=== PATIENT | female | born 1955 | race Caucasian/White ===

== ENCOUNTER 2016-12-13 14:02 | Emergency (ER) | payer OTHER ==
[2016-12-13] MEDS ORDERED: NORMAL SALINE 1000 ML 1,000 ML IV PRN ×2 (14:14→14:58)
--- NOTE | 2016-12-13 14:14 | ER Document Report ---
ED Medical Screen (RME) - General Stated Complaint: FLANK PAIN Notes: Right flank pain reminiscent of a kidney stone a long time ago I greeted and performed a rapid initial assessment of this patient. Comprehensive ED assessment and evaluation of the patient, analysis of test results and completion of the medical decision making process will be conducted by additional ED providers. TRAVEL OUTSIDE OF THE [place] IN LAST 30 DAYS: No - Related Data Allergies/Adverse Reactions: promethazine HCl [From Phenergan] Allergy (Verified 07/20/14 23:54) Past Medical History Neurological Medical History: Reports: Hx Migraine Endocrine Medical History: Reports: Hx Hypothyroidism Renal/ Medical History: Reports: Hx Kidney Stones Past Surgical History: Reports: Hx Cholecystectomy, Hx Hysterectomy - BTL - Immunizations Hx Diphtheria, Pertussis, Tetanus Vaccination: Yes Physical Exam - Vital signs Vitals: Temp Pulse Resp BP Pulse Ox 98.0 F 67 18 123/88 H 97 12/13/16 14:12 12/13/16 14:12 12/13/16 14:12 12/13/16 14:12 12/13/16 14:12 Course - Vital Signs Vital signs: Temp Pulse Resp BP Pulse Ox 98.0 F 67 18 123/88 H 97 12/13/16 14:12 12/13/16 14:12 12/13/16 14:12 12/13/16 14:12 12/13/16 14:12
[2016-12-13 14:39] LABS: ABSOLUTE BASOPHILS # (AUTO) 0.1 10^3/uL (0.0-0.2); ABSOLUTE EOSINOPHILS # (AUTO) 0.2 10^3/uL (0.0-0.6); ABSOLUTE LYMPHOCYTES (AUTO) 2.1 10^3/uL (0.5-4.7); ABSOLUTE MONOCYTES (AUTO) 0.5 10^3/uL (0.1-1.4); ABSOLUTE NEUT (AUTO) 3.1 10^3/uL (1.7-8.2); BASOPHILS % (AUTO) 1.1 % (0-2); EOSINOPHILS % (AUTO) 3.1 % (0-6); HEMATOCRIT 42.6 % (36.0-47.0); HEMOGLOBIN 13.4 g/dL (12.0-15.5); HGB HCT DIFFERENCE -2.4; LYMPHOCYTES % (AUTO) 35.2 % (13-45); MEAN CORPUSCULAR HGB CONC 31.5 g/dL (32.0-36.0); MEAN CORPUSCULAR VOLUME 89 fl (80-97); MONOCYTES % (AUTO) 8.6 % (3-13); RED BLOOD COUNT 4.79 10^6/uL (3.72-5.28); RED CELL DISTRIBUTION WIDTH 15.1 % (11.5-14.0); WHITE BLOOD COUNT 5.9 10^3/uL (4.0-10.5)
[2016-12-13] MEDS ORDERED: MORPHINE SULFATE 10 MG/ML INJ ONE (14:54)
[2016-12-13] MEDS ORDERED: ONDANSETRON HCL INJ/PF 4 MG/2 ML SDV ONE (14:54)
[2016-12-13] MEDS ORDERED: ONDANSETRON HCL INJ/PF 4 MG/2 ML SDV IV ONE (14:57)
[2016-12-13] MEDS ORDERED: MORPHINE SULFATE 10 MG/ML INJ IV PRN ×3 (14:57→18:21)
[2016-12-13 14:58] LABS: ALANINE AMINOTRANSFERASE 28 U/L (9-52); ALKALINE PHOSPHATASE 71 U/L (38-126); ANION GAP 11 (5-19); ASPARTATE AMINO TRANSFERASE 23 U/L (14-36); BILIRUBIN,TOTAL 0.3 mg/dL (0.2-1.3); BLOOD UREA NITROGEN 24 mg/dL (7-20); CARBON DIOXIDE 24 mmol/L (22-30); CHLORIDE 108 mmol/L (98-107); GLUCOSE 94 mg/dL (75-110); POTASSIUM 4.4 mmol/L (3.6-5.0); SODIUM 143.4 mmol/L (137-145); TOTAL PROTEIN 6.8 g/dL (6.3-8.2)
[2016-12-13 14:59] LABS: CALCIUM 9.7 mg/dL (8.4-10.2)
[2016-12-13] MEDS ORDERED: TAMSULOSIN HCL 0.4 MG CAP.SR.24H PO ONE (15:00)
--- NOTE | 2016-12-13 15:00 | ER Document Report ---
ED General - General Chief Complaint: Flank Pain Stated Complaint: FLANK PAIN Time seen by provider: 14:59 Mode of Arrival: Ambulatory Information source: Patient Notes: This is a 61-year-old female with a history of chronic migraines (on Topamax) and kidney stones in the past. Patient presents to the emergency room with acute onset of right flank pain. Patient denies fever, chills. She does have nausea. TRAVEL OUTSIDE OF THE [place] IN LAST 30 DAYS: No - HPI Onset: Just prior to arrival Onset/Duration: Sudden Quality of pain: Dull Severity: Moderate Pain Level: 4 Associated symptoms: denies: Chills, Nonproductive cough, Productive cough, Fever, Shortness of breath Exacerbated by: Denies Relieved by: Denies Similar symptoms previously: Yes Recently seen / treated by doctor: No - Related Data Allergies/Adverse Reactions: promethazine HCl [From Phenergan] Allergy (Verified 12/13/16 14:15) Past Medical History - General Information source: Patient - Social History Smoking Status: Never Smoker Cigarette use (# per day): No Chew tobacco use (# tins/day): No Frequency of alcohol use: None Drug Abuse: None Lives with: Spouse/Significant other Family History: Reviewed & Not Pertinent Patient has suicidal ideation: No Patient has homicidal ideation: No - Past Medical History Cardiac Medical History: Reports: None Pulmonary Medical History: Reports: None Neurological Medical History: Reports: Hx Migraine Endocrine Medical History: Reports: Hx Hypothyroidism Renal/ Medical History: Reports: Hx Kidney Stones. Denies: Hx Peritoneal Dialysis GI Medical History: Reports: None Musculoskeltal Medical History: Reports None Psychiatric Medical History: Reports: None Traumatic Medical History: Reports: None Infectious Medical History: Reports: None Past Surgical History: Reports: Hx Cholecystectomy, Hx Hysterectomy - BTL - Immunizations Hx Diphtheria, Pertussis, Tetanus Vaccination: Yes Review of Systems - Review of Systems Constitutional: denies: Chills, Fever EENT: No symptoms reported Cardiovascular: No symptoms reported Respiratory: No symptoms reported Gastrointestinal: No symptoms reported Genitourinary: See HPI Female Genitourinary: No symptoms reported Musculoskeletal: No symptoms reported Skin: No symptoms reported Hematologic/Lymphatic: No symptoms reported Neurological/Psychological: No symptoms reported Physical Exam - Vital signs Vitals: Temp Pulse Resp BP Pulse Ox 98.0 F 67 18 123/88 H 97 12/13/16 14:12 12/13/16 14:12 12/13/16 14:12 12/13/16 14:12 12/13/16 14:12 Notes: Physical exam: GENERAL: HEAD: Atraumatic, normocephalic. EYES: Pupils equal round and reactive to light, extraocular movements intact, sclera anicteric, conjunctiva are normal. ENT: oropharynx clear without exudates. Dry mucous membranes. NECK: Normal range of motion, supple without lymphadenopathy or JVD. LUNGS: Breath sounds clear to auscultation bilaterally and equal. No wheezes rales or rhonchi. HEART: Regular rate and rhythm without murmurs, rubs or gallops. ABDOMEN: Soft, nontender, normoactive bowel sounds. No guarding, no rebound. No masses appreciated. Right CVA tenderness. EXTREMITIES: Normal range of motion, no pitting or edema. No clubbing or cyanosis. NEUROLOGICAL: Cranial nerves II through XII grossly intact. Normal speech, normal gait. PSYCH: Normal mood, normal affect. SKIN: Warm, Dry, normal turgor, no rashes or lesions noted. Bedside ultrasound: Right hydronephrosis Course - Vital Signs Vital signs: Temp Pulse Resp BP Pulse Ox 97.3 F 56 L 18 119/69 98 12/13/16 16:01 12/13/16 16:01 12/13/16 16:01 12/13/16 16:01 12/13/16 16:01 - Laboratory Result Diagrams: 12/13/16 14:25 12/13/16 14:25 Laboratory results interpreted by me: 12/13/16 12/13/16 12/13/16 14:25 14:25 14:25 MCHC 31.5 L RDW 15.1 H Chloride 108 H BUN 24 H Urine Blood MODERATE H Urine Nitrite POSITIVE H Urine Urobilinogen 4.0 H Discharge - Discharge Clinical Impression: kidney stone Condition: Stable Disposition: HOME, SELF-CARE Instructions: Kidney Stone ([facility]) Additional Instructions: Recommendations: Rest, drink plenty of fluids. Take Percocet as needed: See the narcotic instruction sheet. Take Zofran for nausea. If you have any further worsening pain, return to the emergency room. If you need follow-up with urologist: It is recommended that you follow-up: [facility] Office [address] [place], [place] [phone] [place] Office [address]. [place], [place] [phone] Prescriptions: Ondansetron HCl [Zofran 4 mg Tablet] 1 - 2 tab PO Q4H PRN #10 tablet PRN Reason: Oxycodone HCl/Acetaminophen [Percocet 5-325 mg Tablet] 1 - 2 tab PO ASDIR PRN # 25 tablet PRN Reason: Tamsulosin HCl [Flomax 0.4 mg Cap.sr] 0.4 mg PO DAILY #7 cap.sr.24h
[2016-12-13 15:38] LABS: APPEARANCE,URINE CLEAR; BILIRUBIN,URINE NEGATIVE (NEGATIVE); GLUCOSE, URINE NEGATIVE (NEGATIVE); KETONES,URINE NEGATIVE (NEGATIVE); LEUKOCYTE ESTERASE,URINE NEGATIVE (NEGATIVE); NITRITE,URINE POSITIVE (NEGATIVE); PROTEIN,URINE NEGATIVE (NEGATIVE); URINE SPECIFIC GRAVITY 1.014
[2016-12-13 20:49] VITALS: BP 124/70
== END 2016-12-13 20:35 | disposition home or self-care (01) ==
LOC: ER 14:02
DX: N20.0 Calculus of kidney (principal); R10.9 Unspecified abdominal pain; Z87.442 Personal history of urinary calculi; E03.9 Hypothyroidism, unspecified
CPT/HCPCS: 96376; 99284; 96374; 96375; 36415; 85025; 80053; 81001; J2270; J2405; J7030; 96361

== ENCOUNTER 2016-12-14 15:45 | Emergency (ER) | payer OTHER ==
--- NOTE | 2016-12-14 15:54 | ER Document Report ---
ED Medical Screen (RME) - General Chief Complaint: Flank Pain Stated Complaint: RIGHT FLANK PAIN, VOMITING Notes: This 61-year-old female was here last night and diagnosed with a kidney stone she was sent home with pain medications and is unable to keep them down experiencing more pain. I greeted and performed a rapid initial assessment of this patient. Comprehensive ED assessment and evaluation of the patient, analysis of test results and completion of the medical decision making process will be conducted by additional ED providers. TRAVEL OUTSIDE OF THE [place] IN LAST 30 DAYS: No - Related Data Allergies/Adverse Reactions: promethazine HCl [From Phenergan] Allergy (Verified 12/13/16 14:15) Past Medical History Neurological Medical History: Reports: Hx Migraine Endocrine Medical History: Reports: Hx Hypothyroidism Renal/ Medical History: Reports: Hx Kidney Stones. Denies: Hx Peritoneal Dialysis Past Surgical History: Reports: Hx Cholecystectomy, Hx Hysterectomy - BTL - Immunizations Hx Diphtheria, Pertussis, Tetanus Vaccination: Yes Physical Exam - Vital signs Vitals: Temp Pulse Resp BP Pulse Ox 97.7 F 62 18 138/69 H 100 12/14/16 15:53 12/14/16 15:53 12/14/16 15:53 12/14/16 15:53 12/14/16 15:53 Course - Vital Signs Vital signs: Temp Pulse Resp BP Pulse Ox 97.7 F 62 18 138/69 H 100 12/14/16 15:53 12/14/16 15:53 12/14/16 15:53 12/14/16 15:53 12/14/16 15:53
[2016-12-14] MEDS ORDERED: NORMAL SALINE 1000 ML 1,000 ML IV PRN ×3 (15:55→20:59)
[2016-12-14 16:35] LABS: ABSOLUTE LYMPHOCYTES (AUTO) 1.4 10^3/uL (0.5-4.7); ABSOLUTE MONOCYTES (AUTO) 0.9 10^3/uL (0.1-1.4); BASOPHILS % (AUTO) 0.4 % (0-2); EOSINOPHILS % (AUTO) 0.2 % (0-6); HEMATOCRIT 44.1 % (36.0-47.0); HEMOGLOBIN 13.4 g/dL (12.0-15.5); HGB HCT DIFFERENCE -3.9; LYMPHOCYTES % (AUTO) 12.7 % (13-45); MEAN CORPUSCULAR HEMOGLOBIN 27.1 pg (27.0-33.4); MEAN CORPUSCULAR HGB CONC 30.4 g/dL (32.0-36.0); MEAN CORPUSCULAR VOLUME 89 fl (80-97); MONOCYTES % (AUTO) 7.5 % (3-13); RED BLOOD COUNT 4.94 10^6/uL (3.72-5.28); RED CELL DISTRIBUTION WIDTH 15.2 % (11.5-14.0); SEGMENTED NEUTROPHILS % (AUTO) 79.2 % (42-78); WHITE BLOOD COUNT 11.4 10^3/uL (4.0-10.5)
[2016-12-14 16:49] LABS: ALANINE AMINOTRANSFERASE 34 U/L (9-52); ALBUMIN 4.6 g/dL (3.5-5.0); ALKALINE PHOSPHATASE 78 U/L (38-126); ANION GAP 15 (5-19); ASPARTATE AMINO TRANSFERASE 28 U/L (14-36); BILIRUBIN,TOTAL 0.5 mg/dL (0.2-1.3); BLOOD UREA NITROGEN 16 mg/dL (7-20); CALCIUM 10.2 mg/dL (8.4-10.2); CARBON DIOXIDE 23 mmol/L (22-30); CHLORIDE 106 mmol/L (98-107); CREATININE RESULT 0.99 mg/dL (0.52-1.25); GLUCOSE 101 mg/dL (75-110); SODIUM 143.5 mmol/L (137-145); TOTAL PROTEIN 7.2 g/dL (6.3-8.2)
[2016-12-14] MEDS ORDERED: ONDANSETRON HCL INJ/PF 4 MG/2 ML SDV IV ONE (17:02)
[2016-12-14] MEDS ORDERED: HYDROMORPHONE HCL INJ/PF 2 MG/ML AMPULE IV ONE ×2 (17:02→19:22)
[2016-12-14] MEDS ORDERED: KETOROLAC TROMETHAMINE INJ/PF 30 MG/1 ML SDV IV ONE (17:06)
--- NOTE | 2016-12-14 17:06 | ER Document Report ---
ED General - General Chief Complaint: Flank Pain Stated Complaint: RIGHT FLANK PAIN, VOMITING Time seen by provider: 17:04 Mode of Arrival: Ambulatory Information source: Patient Notes: This is a 61-year-old female with a history of chronic migraines and kidney stones who presented to the emergency room with acute onset right flank pain yesterday. Bedside ultrasound showed hydronephrosis. The urine did show hematuria. We treated her with IV fluids, IV pain medicines and IV antiemetics. At that time, we discussed CAT scan and patient wanted to try to pass the stone without the extra radiation. She was discharged with Zofran, Percocet, Flomax. She states that shortly after getting home, she started vomiting again is not been able to tolerate any pain medicines because of the vomiting. She comes in with persistent right flank and right lower quadrant pain. TRAVEL OUTSIDE OF THE [place] IN LAST 30 DAYS: No - HPI Onset: Yesterday Onset/Duration: Sudden Quality of pain: Dull Severity: Moderate Pain Level: 4 Associated symptoms: denies: Chills, Nonproductive cough, Productive cough, Fever, Shortness of breath Exacerbated by: Denies Relieved by: Denies Similar symptoms previously: Yes Recently seen / treated by doctor: Yes - Related Data Allergies/Adverse Reactions: promethazine HCl [From Phenergan] Allergy (Verified 12/13/16 14:15) Past Medical History - General Information source: Patient - Social History Smoking Status: Never Smoker Cigarette use (# per day): No Chew tobacco use (# tins/day): No Frequency of alcohol use: None Drug Abuse: None Lives with: Spouse/Significant other Family History: Reviewed & Not Pertinent Patient has suicidal ideation: No Patient has homicidal ideation: No - Past Medical History Cardiac Medical History: Reports: None Pulmonary Medical History: Reports: None Neurological Medical History: Reports: Hx Migraine Endocrine Medical History: Reports: Hx Hypothyroidism Renal/ Medical History: Reports: Hx Kidney Stones. Denies: Hx Peritoneal Dialysis Malignancy Medical History: Reports: None GI Medical History: Reports: None Musculoskeltal Medical History: Reports None Skin Medical History: Reports None Psychiatric Medical History: Reports: None Traumatic Medical History: Reports: None Infectious Medical History: Reports: None Past Surgical History: Reports: Hx Cholecystectomy, Hx Hysterectomy - BTL - Immunizations Hx Diphtheria, Pertussis, Tetanus Vaccination: Yes Review of Systems - Review of Systems Constitutional: denies: Chills, Fever EENT: No symptoms reported Cardiovascular: No symptoms reported Respiratory: No symptoms reported Gastrointestinal: See HPI Genitourinary: See HPI Female Genitourinary: No symptoms reported Musculoskeletal: No symptoms reported Skin: No symptoms reported Hematologic/Lymphatic: No symptoms reported Neurological/Psychological: No symptoms reported Physical Exam - Vital signs Vitals: Temp Pulse Resp BP Pulse Ox 97.7 F 62 18 138/69 H 100 12/14/16 15:53 12/14/16 15:53 12/14/16 15:53 12/14/16 15:53 12/14/16 15:53 Notes: Physical exam: GENERAL: 61-year-old female, alert and oriented 3, she is in moderate distress. HEAD: Atraumatic, normocephalic. EYES: Pupils equal round and reactive to light, extraocular movements intact, sclera anicteric, conjunctiva are normal. ENT: Nares patent, oropharynx clear without exudates. Dry mucous membranes. NECK: Normal range of motion, supple without lymphadenopathy LUNGS: Breath sounds clear to auscultation bilaterally and equal. No wheezes rales or rhonchi. HEART: Regular rate and rhythm without murmurs, rubs or gallops. ABDOMEN: Soft, right CVA and right flank pain, normoactive bowel sounds. No guarding, no rebound. No masses appreciated. EXTREMITIES: Normal range of motion, no pitting or edema. No clubbing or cyanosis. NEUROLOGICAL: Cranial nerves II through XII grossly intact. Normal speech, normal gait. PSYCH: Normal mood, normal affect. SKIN: Warm, Dry, normal turgor, no rashes or lesions noted. Course - Re-evaluation Re-evalutation: 12/14/16 19:31 Patient is doing better. I will give her a little bit more pain medicine and not further IV fluids. Her vomiting seems to be controlled. The plan will still be the same. - Vital Signs Vital signs: Temp Pulse Resp BP Pulse Ox 97.7 F 62 18 138/69 H 100 12/14/16 15:53 12/14/16 15:53 12/14/16 15:53 12/14/16 15:53 12/14/16 15:53 - Laboratory Result Diagrams: 12/14/16 16:02 12/14/16 16:02 Laboratory results interpreted by me: 12/14/16 12/14/16 12/14/16 16:02 16:02 17:00 WBC 11.4 H MCHC 30.4 L RDW 15.2 H Seg Neutrophils % 79.2 H Lymphocytes % 12.7 L Absolute Neutrophils 9.0 H Est GFR (Non-Af Amer) 57 L Urine Ketones 20 H Urine Blood LARGE H - Diagnostic Test Radiology reviewed: Image reviewed, Reports reviewed - Renal CT shows a 2-3 mm stone at the right UVJ with hydronephrosis. Discharge - Discharge Clinical Impression: renal colic, vomiting Condition: Stable Disposition: HOME, SELF-CARE Instructions: Kidney Stone ([facility]) Additional Instructions: Recommendations: Rest, drink plenty of fluids, advance diet slowly. Take pain medicine as needed. Zofran for nausea. Follow-up with urologist: [facility] [place] Office [address] [place], [place] [phone] [place] Office [address]. [place], [place] [phone] Return to the emergency room for worsening pain, fever, not tolerating fluids. Prescriptions: Ondansetron [Zofran Odt] 8 mg PO Q6HP PRN #14 tab.rapdis PRN Reason: Oxycodone HCl/Acetaminophen [Percocet 5-325 mg Tablet] 1 - 2 tab PO ASDIR PRN # 25 tablet PRN Reason: Forms: Return to Work Referrals: CÉSAR KLEIN MD [ACTIVE STAFF] - Follow up as needed (Follow-up appointment to reassess Topamax.)
[2016-12-14 17:26] LABS: APPEARANCE,URINE SLIGHTLY-CLOUDY; BILIRUBIN,URINE NEGATIVE (NEGATIVE); GLUCOSE, URINE NEGATIVE (NEGATIVE); KETONES,URINE 20 mg/dL (NEGATIVE); LEUKOCYTE ESTERASE,URINE NEGATIVE (NEGATIVE); NITRITE,URINE NEGATIVE (NEGATIVE); PROTEIN,URINE NEGATIVE (NEGATIVE); URINE SPECIFIC GRAVITY 1.015; UROBILINOGEN,URINE NEGATIVE mg/dL (<2.0)
[2016-12-14] MEDS ORDERED: ONDANSETRON ODT 4 MG TAB (6 TAB/DSPK) PO PRN (21:08)
[2016-12-14] MEDS: HYDROMORPHONE HCL INJ/PF 2 MG/ML AMPULE IV PRN ×2 (21:15→23:30)
[2016-12-14 23:42] VITALS: BP 100/56
== END 2016-12-14 23:35 | disposition home or self-care (01) ==
LOC: ER 15:45
DX: N13.2 Hydronephrosis with renal and ureteral calculous obstruction (principal); R11.10 Vomiting, unspecified; R10.9 Unspecified abdominal pain; R10.31 Right lower quadrant pain; Z88.8 Allergy status to other drugs, medicaments and biological substances; Z90.49 Acquired absence of other specified parts of digestive tract; Z90.710 Acquired absence of both cervix and uterus; Z98.51 Tubal ligation status
CPT/HCPCS: 96376; 99284; 96361; 96374; 96375; 36415; 85025; 80053; 81001; 76380; J1885; J1170; J2405; J7030

== ENCOUNTER 2018-02-22 18:03 | Emergency (ER) | payer OTHER ==
[2018-02-22] MEDS ORDERED: NORMAL SALINE 1000 ML 1,000 ML IV ONE (19:26)
[2018-02-22] MEDS ORDERED: KETOROLAC TROMETHAMINE INJ/PF 30 MG/1 ML SDV IV ONE (19:26)
[2018-02-22] MEDS ORDERED: DIPHENHYDRAMINE HCL 50 MG/ML VIAL IV ONE (19:26)
[2018-02-22] MEDS ORDERED: METOCLOPRAMIDE HCL INJ/PF 10 MG/2 ML SDV IV ONE ×2 (19:27→21:15)
--- NOTE | 2018-02-22 19:29 | ER Document Report ---
ED Medical Screen (RME) - General Chief Complaint: Headache Stated Complaint: HEADACHE Time Seen by Provider: 02/22/18 19:26 Notes: Patient states she has a long history of migraines and takes chronic migraine medications. She states she started with this migraine on Thursday and it feels different than previous migraines. It is different and that it is intense pain behind the left eye and radiates throughout the left side of her head. Patient states that she has not had any CT or MRI done and "years". No recent trauma. No cough cold congestion or fevers. No rashes. Patient states she is also concerned because her vision has been blurry in the left eye today starting around 8 AM. 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 Patient is not within the window for a code stroke. TRAVEL OUTSIDE OF THE [place] IN LAST 30 DAYS: No - Related Data Allergies/Adverse Reactions: promethazine HCl [From Phenergan] Allergy (Verified 02/22/18 18:08) Past Medical History - Social History Chew tobacco use (# tins/day): No Frequency of alcohol use: None Drug Abuse: None Neurological Medical History: Reports: Hx Migraine Endocrine Medical History: Reports: Hx Hypothyroidism Renal/ Medical History: Reports: Hx Kidney Stones. Denies: Hx Peritoneal Dialysis Past Surgical History: Reports: Hx Cholecystectomy, Hx Hysterectomy - Immunizations Hx Diphtheria, Pertussis, Tetanus Vaccination: Yes Physical Exam - Vital signs Vitals: Temp Pulse Resp BP Pulse Ox 98.3 F 75 16 124/76 97 02/22/18 18:37 02/22/18 18:37 02/22/18 18:37 02/22/18 18:37 02/22/18 18:37 Course - Vital Signs Vital signs: Temp Pulse Resp BP Pulse Ox 98.3 F 75 16 124/76 97 02/22/18 18:37 02/22/18 18:37 02/22/18 18:37 02/22/18 18:37 02/22/18 18:37
--- NOTE | 2018-02-22 20:39 | RADIOLOGY REPORT (SQ) ---
EXAM DESCRIPTION: CT HEAD WITHOUT COMPLETED DATE/TIME: 02/22/2018 8:17 pm REASON FOR STUDY: left sided headache COMPARISON: None. TECHNIQUE: Axial images acquired through the brain without intravenous contrast. Images reviewed wi th bone, brain and subdural windows. Images stored on PACS. All CT scanners at this facility use dose modulation, iterative reconstruction, and/or weight based d osing when appropriate to reduce radiation dose to as low as reasonably achievable (ALARA). [facility]: Dose Right [facility]: CareDose [facility]: Dose Right [facility]: Teradose 4D [facility]: VGTel RADIATION DOSE: CT Rad equipment meets quality standard of care and radiation dose reduction techniq ues were employed. CTDIvol: 64.6 mGy. DLP: 1034 mGy-cm. mGy. LIMITATIONS: None. FINDINGS: VENTRICLES: Normal size and contour. CEREBRUM: No masses. No hemorrhage. No midline shift. No evidence for acute infarction. Normal gra y/white matter differentiation. No areas of low density in the white matter. CEREBELLUM: No masses. No hemorrhage. No alteration of density. No evidence for acute infarction. EXTRAAXIAL SPACES: No fluid collections. No masses. ORBITS AND GLOBE: No intra- or extraconal masses. Normal contour of globe without masses. CALVARIUM: No fracture. PARANASAL SINUSES: No fluid or mucosal thickening. SOFT TISSUES: No mass or hematoma. OTHER: No other significant finding. IMPRESSION: NORMAL BRAIN CT WITHOUT CONTRAST. EVIDENCE OF ACUTE STROKE: No COMMENT: Quality ID # [id number]: Final reports with documentation of one or more dose reduction techniques (e.g., Automated exposure control, adjustment of the mA and/or kV according to patient size, use of iterative reconstruction technique) TECHNICAL DOCUMENTATION: JOB ID: [id number] [email or web address] All Rights Reserved Reading location - IP/workstation name: [email or web address]
[2018-02-22] MEDS ORDERED: HYDROMORPHONE HCL INJ/PF 2 MG/ML AMPULE IV ONE (21:14)
[2018-02-22] MEDS ORDERED: DEXAMETHASONE SOD PHOS INJ 10 MG/1 ML VIAL IV ONE (21:15)
--- NOTE | 2018-02-22 21:15 | ER Document Report ---
ED Headache - General Chief Complaint: Headache Stated Complaint: HEADACHE Time Seen by Provider: 02/22/18 19:26 Notes: Patient is a 63-year-old female that comes emergency department for chief complaint of a headache for the past 3 days. She states she has tightness in the left side of her neck, tightness along the left side of her head, throbbing behind the left eye with intermittent blurry vision in the left eye. She denies trauma, fever. She does have a history of migraines, she has had previous CAT scans and MRIs performed, she takes Topamax, if the headache is early she takes sumatriptan, she also can take Vicoprofen as needed. She denies any focal numbness or weakness, speech difficulty, history of stroke, and she is not on a blood thinner. TRAVEL OUTSIDE OF THE [place] IN LAST 30 DAYS: No - Related Data Allergies/Adverse Reactions: promethazine HCl [From Phenergan] Allergy (Verified 02/22/18 18:08) Past Medical History - General Information source: Patient - Social History Smoking Status: Never Smoker Chew tobacco use (# tins/day): No Frequency of alcohol use: None Drug Abuse: None Lives with: Family Family History: Reviewed & Not Pertinent Patient has suicidal ideation: No Patient has homicidal ideation: No Neurological Medical History: Reports: Hx Migraine Endocrine Medical History: Reports: Hx Hypothyroidism Renal/ Medical History: Reports: Hx Kidney Stones. Denies: Hx Peritoneal Dialysis Past Surgical History: Reports: Hx Cholecystectomy, Hx Hysterectomy - Immunizations Hx Diphtheria, Pertussis, Tetanus Vaccination: Yes Review of Systems - Review of Systems Constitutional: No symptoms reported EENT: No symptoms reported Cardiovascular: No symptoms reported Respiratory: No symptoms reported Gastrointestinal: No symptoms reported Genitourinary: No symptoms reported Female Genitourinary: No symptoms reported Musculoskeletal: See HPI Skin: No symptoms reported Hematologic/Lymphatic: No symptoms reported Neurological/Psychological: See HPI Physical Exam - Vital signs Vitals: Temp Pulse Resp BP Pulse Ox 98.3 F 75 16 124/76 97 02/22/18 18:37 02/22/18 18:37 02/22/18 18:37 02/22/18 18:37 02/22/18 18:37 - General General appearance: Appears well In distress: None - HEENT Head: Normocephalic, Atraumatic Eyes: Normal Conjunctiva: Normal Extraocular movements intact: Yes Eyelashes: Normal Pupils: PERRL Nasal: Normal Mouth/Lips: Normal Mucous membranes: Normal Pharynx: Normal Neck: Normal - Respiratory Respiratory status: No respiratory distress Breath sounds: Normal. No: Decreased air movement, Wheezing - Cardiovascular Rhythm: Regular. No: Tachycardia Heart sounds: Normal auscultation, S1 appreciated, S2 appreciated - Abdominal Inspection: Normal Tenderness: Nontender. No: Tender, Guarding - Back Back: Tender - There is tenderness over the left paracervical musculature, no midline tenderness, normal upper and lower extremity range of motion, normal distal neurovascular exam, no saddle anesthesia - Extremities General upper extremity: Normal inspection, Nontender, Normal strength, Normal temperature General lower extremity: Normal inspection, Nontender, Normal strength, Normal temperature - Neurological Neuro grossly intact: Yes Cognition: Normal Orientation: AAOx4 [place] Coma Scale Eye Opening: Spontaneous [place] Coma Scale Verbal: Oriented [place] Coma Scale Motor: Obeys Commands [place] Coma Scale Total: 15 Speech: Normal Cranial nerves: Normal Cerebellar coordination: Normal Motor strength normal: LUE, RUE, LLE, RLE 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 CAT scan of the head was reviewed and normal, patient has no neurological deficits, only pertinent physical exam finding is tenderness in the left paracervical area, she has no nuchal rigidity, fever, altered mental status, or other concerning abnormalities. After additional medications including dexamethasone headache is completely resolved. Patient is very grateful, smiling, requesting to leave. Low suspicion of meningitis, subarachnoid hemorrhage, CVA, venous sinus thrombosis based on her assessment and headache resolution. Patient has excellent follow- up, discussed return precautions in detail, patient states understanding and agreement. - Vital Signs Vital signs: Temp Pulse Resp BP Pulse Ox 98.0 F 68 14 102/59 L 98 02/22/18 23:10 02/22/18 23:10 02/22/18 23:10 02/22/18 23:10 02/22/18 23:10 Discharge - Discharge Clinical Impression: Headache Qualifiers: Headache type: unspecified Headache chronicity pattern: acute headache Intractability: not intractable Qualified Code(s): R51 - Headache Condition: Stable Disposition: HOME, SELF-CARE Additional Instructions: Your evaluation and symptoms are most consistent with a tension type headache with associated migraine. CAT scan of the head does not show any concerning abnormalities. You may need additional management for your neck including muscle relaxers, heat , gentle stretches, etc. Follow-up with primary care. Return to the emergency department for any concerning or worsening symptoms including return severe headache, vomiting, fever, or any other concerning symptoms. Forms: Return to Work Referrals: CARYN HOUSE MD [Primary Care Provider] - Follow up as needed
[2018-02-22 23:24] VITALS: BP 102/59
== END 2018-02-22 23:24 | disposition home or self-care (01) ==
LOC: ER 18:03
DX: R51 Headache (principal); M54.2 Cervicalgia; H53.8 Other visual disturbances; H57.12 Ocular pain, left eye; Z79.899 Other long term (current) drug therapy
CPT/HCPCS: 96376; 99283; 96361; 96374; 96375; 70450; J1200; J1885; J2765; J1170; J7030; J1100

== ENCOUNTER 2018-06-10 17:55 | Emergency (ER) | payer OTHER ==
[2018-06-10] MEDS ORDERED: NORMAL SALINE 1000 ML 1,000 ML IV ONE (19:08)
[2018-06-10] MEDS ORDERED: DIPHENHYDRAMINE HCL 50 MG/ML VIAL IV ONE (19:08)
[2018-06-10] MEDS ORDERED: METOCLOPRAMIDE HCL INJ/PF 10 MG/2 ML SDV IV ONE (19:09)
--- NOTE | 2018-06-10 19:10 | ER Document Report ---
ED Medical Screen (RME) - General Chief Complaint: Headache Stated Complaint: HEADACHE Time Seen by Provider: 06/10/18 19:02 Mode of Arrival: Ambulatory Information source: Patient Notes: 63-year-old female presents emergency department with complaints of a migraine headache. Patient has a history of migraine headaches and states that this is similar to previous. Patient states that the headache is located on the left side of her face and behind her left eye. She describes it as a stabbing sensation. She denies any radiation of the pain. She denies any alleviating factors. Patient states that light and sound make her migraine worse. She has tried Maxalt, Topamax, Fioricet without any relief of symptoms. Patient is having some nausea but denies any vomiting. I have greeted and performed a rapid initial assessment of this patient. A comprehensive ED assessment and evaluation of the patient, analysis of test results and completion of the medical decision making process will be conducted by additional ED providers. PHYSICAL EXAMINATION: GENERAL: Well-appearing, well-nourished and in no acute distress. HEAD: Atraumatic, normocephalic. EYES: Pupils equal round extraocular movements intact, conjunctiva are normal. ENT: Nares patent NECK: Normal range of motion LUNGS: No respiratory distress Musculoskeletal: Normal range of motion NEUROLOGICAL: Normal speech, normal gait. PSYCH: Normal mood, normal affect. SKIN: Warm, Dry, normal turgor, no rashes or lesions noted. TRAVEL OUTSIDE OF THE [place] IN LAST 30 DAYS: No - Related Data Allergies/Adverse Reactions: promethazine HCl [From Phenergan] Allergy (Verified 02/22/18 18:08) Past Medical History - Social History Frequency of alcohol use: Occasional Neurological Medical History: Reports: Hx Migraine Endocrine Medical History: Reports: Hx Hypothyroidism Renal/ Medical History: Reports: Hx Kidney Stones. Denies: Hx Peritoneal Dialysis Past Surgical History: Reports: Hx Cholecystectomy, Hx Hysterectomy - Immunizations Hx Diphtheria, Pertussis, Tetanus Vaccination: Yes Physical Exam - Vital signs Vitals: Temp Pulse Resp BP Pulse Ox 97.6 F 64 15 125/77 98 06/10/18 18:09 06/10/18 18:09 06/10/18 18:09 06/10/18 18:09 06/10/18 18:09 Course - Vital Signs Vital signs: Temp Pulse Resp BP Pulse Ox 97.6 F 64 15 125/77 98 06/10/18 18:09 06/10/18 18:09 06/10/18 18:09 06/10/18 18:09 06/10/18 18:09 Doctor's Discharge - Discharge Referrals: CARYN HOUSE MD [Primary Care Provider] - Follow up as needed
[2018-06-10] MEDS ORDERED: KETOROLAC TROMETHAMINE INJ/PF 30 MG/1 ML SDV IV ONE (20:16)
--- NOTE | 2018-06-10 20:19 | ER Document Report ---
ED Headache - General Chief Complaint: Headache Stated Complaint: HEADACHE Time Seen by Provider: 06/10/18 19:02 Mode of Arrival: Ambulatory Information source: Patient Notes: Patient is a 63-year-old female with chief complaint of migraine. Patient reports history of migraines and states that this migraine started at approximately 10 AM. Patient reports that the headache was a gradual onset is located in the left side of her head and behind the left. Patient reports that she has taken her Topamax, Maxalt and Fioricet with no relief of her pain. Patient also reports associated nausea with no vomiting. TRAVEL OUTSIDE OF THE [place] IN LAST 30 DAYS: No - Related Data Allergies/Adverse Reactions: promethazine HCl [From Phenergan] Allergy (Verified 02/22/18 18:08) Past Medical History - General Information source: Patient - Social History Smoking Status: Never Smoker Frequency of alcohol use: Occasional Lives with: Spouse/Significant other Family History: Reviewed & Not Pertinent Patient has suicidal ideation: No Patient has homicidal ideation: No Neurological Medical History: Reports: Hx Migraine Endocrine Medical History: Reports: Hx Hypothyroidism Renal/ Medical History: Reports: Hx Kidney Stones. Denies: Hx Peritoneal Dialysis Past Surgical History: Reports: Hx Cholecystectomy, Hx Hysterectomy - Immunizations Hx Diphtheria, Pertussis, Tetanus Vaccination: Yes Review of Systems - Review of Systems Constitutional: No symptoms reported EENT: No symptoms reported Cardiovascular: No symptoms reported Respiratory: No symptoms reported Gastrointestinal: No symptoms reported Genitourinary: No symptoms reported Female Genitourinary: No symptoms reported Musculoskeletal: No symptoms reported Skin: No symptoms reported Hematologic/Lymphatic: No symptoms reported Neurological/Psychological: Headaches Physical Exam - Vital signs Vitals: Temp Pulse Resp BP Pulse Ox 97.6 F 64 15 125/77 98 06/10/18 18:09 06/10/18 18:09 06/10/18 18:09 06/10/18 18:09 06/10/18 18:09 - Notes Notes: PHYSICAL EXAMINATION: GENERAL: Well-appearing, well-nourished and in no acute distress. HEAD: Atraumatic, normocephalic. EYES: Pupils equal round and reactive to light, extraocular movements intact, conjunctiva are normal. ENT: Nares patent, oropharynx clear without exudates. Moist mucous membranes. NECK: Normal range of motion, supple without lymphadenopathy LUNGS: Breath sounds clear to auscultation bilaterally and equal. No wheezes rales or rhonchi. HEART: Regular rate and rhythm without murmurs ABDOMEN: Soft, nontender, nondistended abdomen. No guarding, no rebound. No masses appreciated. Female : deferred Musculoskeletal: Normal range of motion, no pitting or edema. No cyanosis. NEUROLOGICAL: Cranial nerves grossly intact. Normal speech, normal gait. Normal sensory, motor exams PSYCH: Normal mood, normal affect. SKIN: Warm, Dry, normal turgor, no rashes or lesions noted. Course - Re-evaluation Re-evalutation: 63-year-old female presents with chief complaint of headache. Patient reports history of migraines and reports that this headache is consistent with her typical migraines. Patient was initially seen by triage provider who ordered Reglan, Benadryl and 1L of normal saline. Patient reports that Toradol usually helps with her migraines. I will add on an order of Toradol IV and reevaluate the patient. Patient reports complete resolution of her headache symptoms at this time. Patient reports that she is ready to go home. Patient will be discharged home in stable condition. - Vital Signs Vital signs: Temp Pulse Resp BP Pulse Ox 97.6 F 64 15 125/77 98 06/10/18 18:09 06/10/18 18:09 06/10/18 18:09 06/10/18 18:09 06/10/18 18:09 Discharge - Discharge Clinical Impression: Migraine Qualifiers: Migraine type: with aura Status migrainosus presence: without status migrainosus Intractability: not intractable Qualified Code(s): G43.109 - Migraine with aura, not intractable, without status migrainosus Condition: Stable Disposition: HOME, SELF-CARE Additional Instructions: Migraine Headache The physician feels that your symptoms are due to a migraine attack. Migraines are caused by changes in the blood vessels of the head. Arteries go into spasm, often causing warning symptoms that a headache may begin soon. As the spasm goes away, the vessels dilate and throb, causing the pounding pain of a migraine headache. Migraines often cause nausea and vomiting. The treatment of headaches varies with severity and cause of pain. Not all headaches need pain shots -- in fact, there is evidence that using narcotics for headaches may make them worse in the long run. The physician will determine the therapy that's in your best interest for this particular headache. Medications are available that may prevent migraines, or stop them as they first occur. If one medication is not helpful, try another. If migraines are frequent, be patient -- follow the doctor's recommendations. Call the physician if you are worsening, or if new symptoms arise. Referrals: CARYN HOUSE MD [Primary Care Provider] - Follow up as needed
[2018-06-10 21:35] VITALS: BP 139/70
== END 2018-06-10 21:44 | disposition home or self-care (01) ==
LOC: ER 17:55
DX: G43.109 Migraine with aura, not intractable, without status migrainosus (principal); Z88.8 Allergy status to other drugs, medicaments and biological substances; Z90.49 Acquired absence of other specified parts of digestive tract; Z90.710 Acquired absence of both cervix and uterus
CPT/HCPCS: 99283; 96361; 96374; 96375; J1200; J1885; J2765; J7030

== ENCOUNTER 2018-10-05 17:11 | Emergency (ER) | payer OTHER ==
[2018-10-05] MEDS ORDERED: DIPHENHYDRAMINE HCL 50 MG/ML VIAL IV ONE (18:02)
[2018-10-05] MEDS ORDERED: METOCLOPRAMIDE HCL INJ/PF 10 MG/2 ML SDV IV ONE (18:03)
[2018-10-05] MEDS ORDERED: NORMAL SALINE 1000 ML 1,000 ML IV ONE (18:03)
--- NOTE | 2018-10-05 18:06 | ER Document Report ---
ED Medical Screen (RME) - General Chief Complaint: Headache Stated Complaint: HEADACHE Time Seen by Provider: 10/05/18 17:56 Mode of Arrival: Ambulatory Information source: Patient Notes: 63-year-old female presents emergency department with a 3-day history headache. She states that the headache is located on the left side of her face behind her left eye and towards her rastafarian. She describes it as a throbbing sensation. She denies any alleviating or exacerbating factors. Patient states that she is tried Maxalt and Fioricet without relief of symptoms. Patient states that she is having some associated nausea and some blurred vision. Patient states that this headache feels different than her previous. She states that she has never had blurred vision associated with the migraine. Patient states that this is concerning her. She states that she also did not have an aura with this headache today. She states that she has been having frequent syncopal episodes over the last couple of weeks. Patient states that she has fallen down and hit her head. She denies any numbness, tingling, weakness, speech changes. I have greeted and performed a rapid initial assessment of this patient. A comprehensive ED assessment and evaluation of the patient, analysis of test results and completion of the medical decision making process will be conducted by additional ED providers. PHYSICAL EXAMINATION: GENERAL: Well-appearing, well-nourished and in no acute distress. HEAD: Atraumatic, normocephalic. EYES: Pupils equal round extraocular movements intact, conjunctiva are normal. ENT: Nares patent NECK: Normal range of motion LUNGS: No respiratory distress Musculoskeletal: Normal range of motion NEUROLOGICAL: Normal speech, normal gait. PSYCH: Normal mood, normal affect. SKIN: Warm, Dry, normal turgor, no rashes or lesions noted. TRAVEL OUTSIDE OF THE [place] IN LAST 30 DAYS: No - Related Data Allergies/Adverse Reactions: promethazine HCl [From Phenergan] Allergy (Verified 10/05/18 17:38) Past Medical History - Social History Chew tobacco use (# tins/day): No Frequency of alcohol use: None Drug Abuse: None Neurological Medical History: Reports: Hx Migraine Endocrine Medical History: Reports: Hx Hypothyroidism Renal/ Medical History: Reports: Hx Kidney Stones. Denies: Hx Peritoneal Dialysis Past Surgical History: Reports: Hx Cholecystectomy, Hx Hysterectomy - Immunizations Hx Diphtheria, Pertussis, Tetanus Vaccination: Yes Physical Exam - Vital signs Vitals: Temp Pulse Resp BP Pulse Ox 98.2 F 74 18 125/77 97 10/05/18 17:20 10/05/18 17:20 10/05/18 17:20 10/05/18 17:20 10/05/18 17:20 Course - Vital Signs Vital signs: Temp Pulse Resp BP Pulse Ox 98.2 F 74 18 125/77 97 10/05/18 17:20 10/05/18 17:20 10/05/18 17:20 10/05/18 17:20 10/05/18 17:20 Doctor's Discharge - Discharge Referrals: CARYN HOUSE MD [Primary Care Provider] - Follow up as needed
--- NOTE | 2018-10-05 18:49 | RADIOLOGY REPORT (SQ) ---
EXAM DESCRIPTION: CT HEAD WITHOUT COMPLETED DATE/TIME: 10/05/2018 6:20 pm REASON FOR STUDY: blurred vision, headache COMPARISON: 02/22/2018 TECHNIQUE: Axial images acquired through the brain without intravenous contrast. Images reviewed wi th bone, brain and subdural windows. Additional sagittal and coronal reconstructions were generated. Images stored on PACS. All CT scanners at this facility use dose modulation, iterative reconstruction, and/or weight based d osing when appropriate to reduce radiation dose to as low as reasonably achievable (ALARA). [facility]: Dose Right [facility]: CareDose [facility]: Dose Right [facility]: Teradose 4D [facility]: Smart M&D ANTIQUES & CONSIGNMENT RADIATION DOSE: CT Rad equipment meets quality standard of care and radiation dose reduction techniq ues were employed. CTDIvol: 53.2 mGy. DLP: 991 mGy-cm. mGy. LIMITATIONS: None. FINDINGS: VENTRICLES: Normal size and contour. CEREBRUM: No masses. No hemorrhage. No midline shift. No evidence for acute infarction. Normal gra y/white matter differentiation. No areas of low density in the white matter. CEREBELLUM: No masses. No hemorrhage. No alteration of density. No evidence for acute infarction. EXTRAAXIAL SPACES: No fluid collections. No masses. ORBITS AND GLOBE: No intra- or extraconal masses. Normal contour of globe without masses. CALVARIUM: No fracture. PARANASAL SINUSES: No fluid or mucosal thickening. SOFT TISSUES: No mass or hematoma. OTHER: No other significant finding. IMPRESSION: NORMAL BRAIN CT WITHOUT CONTRAST. EVIDENCE OF ACUTE STROKE: NO. COMMENT: Quality ID # [id number]: Final reports with documentation of one or more dose reduction techniques (e.g., Automated exposure control, adjustment of the mA and/or kV according to patient size, use of iterative reconstruction technique) TECHNICAL DOCUMENTATION: JOB ID: [id number] [employer]- All Rights Reserved Reading location - IP/workstation name: [email or web address]
[2018-10-05 18:51] LABS: ABSOLUTE BASOPHILS # (AUTO) 0.1 10^3/uL (0.0-0.2); ABSOLUTE EOSINOPHILS # (AUTO) 0.2 10^3/uL (0.0-0.6); ABSOLUTE LYMPHOCYTES (AUTO) 1.7 10^3/uL (0.5-4.7); ABSOLUTE MONOCYTES (AUTO) 0.5 10^3/uL (0.1-1.4); ABSOLUTE NEUT (AUTO) 3.6 10^3/uL (1.7-8.2); BASOPHILS % (AUTO) 0.9 % (0-2); EOSINOPHILS % (AUTO) 2.5 % (0-6); HEMATOCRIT 42.1 % (36.0-47.0); HEMOGLOBIN 14.4 g/dL (12.0-15.5); LYMPHOCYTES % (AUTO) 28.6 % (13-45); MEAN CORPUSCULAR HEMOGLOBIN 30.3 pg (27.0-33.4); MEAN CORPUSCULAR HGB CONC 34.1 g/dL (32.0-36.0); MEAN CORPUSCULAR VOLUME 89 fl (80-97); MONOCYTES % (AUTO) 8.1 % (3-13); PLATELET COUNT 256 10^3/uL (150-450); RED BLOOD COUNT 4.73 10^6/uL (3.72-5.28); RED CELL DISTRIBUTION WIDTH 14.1 % (11.5-14.0); SEGMENTED NEUTROPHILS % (AUTO) 59.9 % (42-78); TOTAL CELLS COUNTED % (AUTO) 100 %; WHITE BLOOD COUNT 6.1 10^3/uL (4.0-10.5)
[2018-10-05] MEDS ORDERED: HYDROMORPHONE HCL INJ/PF 2 MG/ML AMPULE IV ONE ×3 (18:52→22:32)
[2018-10-05] MEDS ORDERED: METHYLPREDNISOLONE INJ 125 MG/2 ML SDV IV ONE (18:52)
--- NOTE | 2018-10-05 18:57 | ER Document Report ---
ED General - General Chief Complaint: Headache Stated Complaint: HEADACHE Time Seen by Provider: 10/05/18 17:56 Mode of Arrival: Ambulatory Information source: Patient Notes: This is a 63-year-old female with a history of migraine headaches, hypothyroidism, hypoglycemia, kidney stones who presents to the emergency room with a headache for 2 days. Patient states her headache is left-sided and sharp in nature and started at 10 AM on Thursday (2 days ago). Patient denies any recent illnesses. She denies fever. She denies neck pain. She denies rash. She states she has had some visual changes and has plans to see the eye doctor tomorrow. TRAVEL OUTSIDE OF THE [place] IN LAST 30 DAYS: No - HPI Onset: Other Onset/Duration: Gradual - 2 days ago Quality of pain: Dull Severity: Moderate Pain Level: 4 Associated symptoms: Headache, Nausea. denies: Fever, Shortness of breath Exacerbated by: Denies Relieved by: Denies Similar symptoms previously: Yes Recently seen / treated by doctor: No - Related Data Allergies/Adverse Reactions: promethazine HCl [From Phenergan] Allergy (Verified 10/05/18 17:38) Past Medical History - General Information source: Patient - Social History Smoking Status: Never Smoker Cigarette use (# per day): No Chew tobacco use (# tins/day): No Frequency of alcohol use: None Drug Abuse: None Lives with: Family Family History: Reviewed & Not Pertinent Patient has suicidal ideation: No Patient has homicidal ideation: No - Past Medical History Cardiac Medical History: Denies: Hx Congestive Heart Failure, Hx Hypertension Pulmonary Medical History: Reports: None Neurological Medical History: Reports: Hx Migraine Endocrine Medical History: Reports: Hx Hypothyroidism Renal/ Medical History: Reports: Hx Kidney Stones. Denies: Hx Peritoneal Dialysis Past Surgical History: Reports: Hx Cholecystectomy, Hx Hysterectomy - Immunizations Hx Diphtheria, Pertussis, Tetanus Vaccination: Yes Review of Systems - Review of Systems Constitutional: denies: Chills, Fever EENT: See HPI Cardiovascular: No symptoms reported Respiratory: No symptoms reported Gastrointestinal: No symptoms reported Genitourinary: No symptoms reported Female Genitourinary: No symptoms reported Musculoskeletal: No symptoms reported Skin: No symptoms reported Hematologic/Lymphatic: No symptoms reported Neurological/Psychological: See HPI Physical Exam - Vital signs Vitals: Temp Pulse Resp BP Pulse Ox 98.2 F 74 18 125/77 97 11/06/18 17:20 10/05/18 17:20 10/05/18 17:20 10/05/18 17:20 10/05/18 17:20 Notes: Physical exam: GENERAL: She is alert and oriented x3 and in no acute distress HEAD: Atraumatic, normocephalic. EYES: Pupils equal round and reactive to light, extraocular movements intact, sclera anicteric, conjunctiva are normal. Patient tolerates the light exam quite well. ENT: TMs normal, nares patent, oropharynx clear without exudates. Moist mucous membranes. NECK: Normal range of motion, supple without obvious mass or JVD. LUNGS: Breath sounds clear to auscultation bilaterally and equal. No wheezes rales or rhonchi. HEART: Regular rate and rhythm without murmurs, rubs or gallops. ABDOMEN: Soft, normoactive bowel sounds. No tenderness to palpation. No guarding, no rebound. No masses appreciated. EXTREMITIES: Normal range of motion, no pitting or edema. No clubbing or cyanosis. NEUROLOGICAL: Cranial nerves II through XII grossly intact. Normal speech, motor is 5/5, sensory is grossly intact, cerebellar (finger to nose) is good with both upper extremities. There is no Kernig's or Brudzinski's and her neck is supple. PSYCH: Normal mood, normal affect. SKIN: Warm, Dry, normal turgor, no rashes or lesions noted. Course - Vital Signs Vital signs: Temp Pulse Resp BP Pulse Ox 97.3 F 79 18 111/65 98 10/05/18 22:40 10/05/18 22:40 10/05/18 22:40 10/05/18 22:40 10/05/18 22:40 - Laboratory Result Diagrams: 10/05/18 18:32 10/05/18 18:32 Laboratory results interpreted by me: 10/05/18 10/05/18 18:32 18:32 RDW 14.1 H Chloride 110 H BUN 24 H Est GFR (Non-Af Amer) 53 L - EKG Interpretation by Me Rate: Normal Rhythm: NSR - EKG shows sinus rhythm with a ventricular rate of 61, no acute ST- T wave changes compared to EKG 07/28/15 Discharge - Discharge Clinical Impression: Migraine headache Condition: Stable Disposition: HOME, SELF-CARE Instructions: Antinausea Medication ([facility]), Pain Medication Injection ([facility]), Reglan ([facility]) Additional Instructions: Recommendations: Rest, drink plenty of fluids, take medicines as previously prescribed. Take off tomorrow if needed. Follow-up with the eye doctor as planned. Return to the emergency room for any worsening pain or concerns or getting worse. Forms: Return to Work Referrals: CARYN HOUSE MD [Primary Care Provider] - Follow up as needed
[2018-10-05 19:11] LABS: ALANINE AMINOTRANSFERASE 21 U/L (9-52); ALKALINE PHOSPHATASE 82 U/L (38-126); ANION GAP 10 (5-19); ASPARTATE AMINO TRANSFERASE 23 U/L (14-36); BILIRUBIN,DIRECT 0.2 mg/dL (0.0-0.4); BILIRUBIN,TOTAL 0.3 mg/dL (0.2-1.3); BLOOD UREA NITROGEN 24 mg/dL (7-20); CALCIUM 9.4 mg/dL (8.4-10.2); CARBON DIOXIDE 25 mmol/L (22-30); CHLORIDE 110 mmol/L (98-107); GLUCOSE 85 mg/dL (75-110); POTASSIUM 4.3 mmol/L (3.6-5.0); SODIUM 144.7 mmol/L (137-145); TOTAL PROTEIN 6.7 g/dL (6.3-8.2)
[2018-10-05 22:41] VITALS: BP 111/65
--- NOTE | 2018-10-06 07:42 | EKG REPORT ---
SEVERITY:- NORMAL ECG - SINUS RHYTHM : Confirmed by: Bayron Root MD 06-Oct-2018 07:41:42
== END 2018-10-05 23:02 | disposition home or self-care (01) ==
LOC: ER 17:11
DX: G43.909 Migraine, unspecified, not intractable, without status migrainosus (principal); E03.9 Hypothyroidism, unspecified; Z87.442 Personal history of urinary calculi; Z88.8 Allergy status to other drugs, medicaments and biological substances; Z90.49 Acquired absence of other specified parts of digestive tract; Z90.710 Acquired absence of both cervix and uterus
CPT/HCPCS: 93005; 96376; 99284; 96361; 96374; 96375; 36415; 85025; 80053; 70450; 93010; J1200; J2930; J2765; J1170; J7030

== ENCOUNTER 2018-11-10 16:04 | Emergency (ER) | payer OTHER ==
[2018-11-10] MEDS ORDERED: ONDANSETRON 4 MG TAB.RAPDIS PO ONE (16:58)
[2018-11-10] MEDS ORDERED: OXYCODONE-ACETAMINOPHEN 5-325 MG TABLET PO ONE (16:58)
--- NOTE | 2018-11-10 16:58 | ER Document Report ---
ED General - General Chief Complaint: Possible Kidney Stone Stated Complaint: FLANK PAIN Time Seen by Provider: 11/10/18 16:51 Notes: Patient is a 63-year-old female with history of kidney stones that presents to the emergency department for chief complaint of left flank pain radiating to the groin. Patient reports that her symptoms started yesterday, in the left flank, but then it radiated to the groin today and the pain was much worse today with associated nausea but no vomiting. She has had urinary hesitancy, that even started a few days prior to her pain, she started taking Azo for that because she had some suprapubic pressure. She states her last kidney stone was approximately 1 year ago, she has not required lithotripsy in the past. Denies any any fevers, chills, night sweats, vomiting, chest pain, shortness of breath or difficulty breathing. Past Medical History: Hypothyroidism, kidney stones Past Surgical History: Hysterectomy, cholecystectomy Social History: Denies tobacco, alcohol or drug use. Family History: Reviewed and noncontributory for presenting illness Allergies: Reviewed, see documented allergy list. REVIEW OF SYSTEMS: Other than noted above, the 12 point review of systems was reviewed with the patient and were negative, all pertinent findings are included in the HPI. PHYSICAL EXAMINATION: Vital signs reviewed, nursing noted reviewed. GENERAL: Well-appearing, well-nourished and in no acute distress. HEAD: Atraumatic, normocephalic. EYES: Eyes appear normal, extraocular movements intact, sclera anicteric, conjunctiva are normal. ENT: nares patent, oropharynx clear without exudates. Moist mucous membranes. NECK: Normal range of motion, supple without lymphadenopathy LUNGS: Breath sounds clear to auscultation bilaterally and equal. No wheezes rales or rhonchi. HEART: Regular rate and rhythm without murmurs ABDOMEN: Soft, nontender, normoactive bowel sounds. No rebound, guarding, or rigidity. No masses appreciated. EXTREMITIES: Nontender, good range of motion, no pitting or edema. NEUROLOGICAL: No focal neurological deficits. Moves all extremities spontaneously Motor and sensory grossly intact on exam. PSYCH: Normal mood, normal affect. SKIN: Warm, Dry, normal turgor, no rashes or lesions noted on exposed skin TRAVEL OUTSIDE OF THE [place] IN LAST 30 DAYS: No - Related Data Allergies/Adverse Reactions: promethazine HCl [From Phenergan] Allergy (Verified 10/05/18 17:38) Past Medical History - Social History Smoking Status: Never Smoker Chew tobacco use (# tins/day): No Frequency of alcohol use: None Drug Abuse: None Family History: Reviewed & Not Pertinent Patient has suicidal ideation: No Patient has homicidal ideation: No - Past Medical History Cardiac Medical History: Denies: Hx Congestive Heart Failure, Hx Hypertension Neurological Medical History: Reports: Hx Migraine Endocrine Medical History: Reports: Hx Hypothyroidism Renal/ Medical History: Reports: Hx Kidney Stones. Denies: Hx Peritoneal Dialysis Past Surgical History: Reports: Hx Cholecystectomy, Hx Hysterectomy - Immunizations Hx Diphtheria, Pertussis, Tetanus Vaccination: Yes Physical Exam - Vital signs Vitals: Temp Pulse Resp BP Pulse Ox 97.5 F 71 15 140/71 H 99 11/10/18 16:16 11/10/18 16:16 11/10/18 16:16 11/10/18 16:16 11/10/18 16:16 Course - Re-evaluation Re-evalutation: Patient was seen and examined, vital signs reviewed, patient's workup was reviewed, she did have an obstructing 1-2 mm stone at the left UVJ, her UA was positive for nitrates, as well as white blood cells, she had a mild leukocytosis , because of this I felt the patient needed to be moved to the main portion of the ED, for infected an obstructing stone, discussed with the patient and she agreed with this plan of care, I ordered a dose of IV Rocephin, and IV Dilaudid as the patient's pain was worsening. Limited or Localized CT 11/10/18 16:58 IMPRESSION: Mild left-sided hydronephrosis secondary to a 1 to 2 mm left UVJ stone. There are nonobstructing left renal calculi as well. Laboratory 11/10/18 11/10/18 11/10/18 17:05 17:21 17:21 WBC 10.7 H RBC 4.41 Hgb 13.2 Hct 39.4 MCV 89 MCH 30.0 MCHC 33.5 RDW 13.3 Plt Count 315 Seg Neutrophils % 74.0 Lymphocytes % 16.2 Monocytes % 7.7 Eosinophils % 1.4 Basophils % 0.7 Absolute Neutrophils 7.9 Absolute Lymphocytes 1.7 Absolute Monocytes 0.8 Absolute Eosinophils 0.2 Absolute Basophils 0.1 Sodium 142.1 Potassium 4.1 Chloride 108 H Carbon Dioxide 26 Anion Gap 8 BUN 25 H Creatinine 0.99 Est GFR ( Amer) > 60 Est GFR (Non-Af Amer) 57 L Glucose 92 Calcium 10.0 Total Bilirubin 0.4 Direct Bilirubin 0.1 Neonat Total Bilirubin Not Reportable Neonat Direct Bilirubin Not Reportable Neonat Indirect Bili Not Reportable AST 25 ALT 29 Alkaline Phosphatase 95 Total Protein 7.2 Albumin 4.3 Lipase 193.5 Urine Color MOOKIE Urine Appearance CLEAR Urine pH 5.0 Ur Specific [place] 1.016 Urine Protein NEGATIVE Urine Glucose (UA) NEGATIVE Urine Ketones NEGATIVE Urine Blood MODERATE H Urine Nitrite POSITIVE H Urine Bilirubin NEGATIVE Urine Urobilinogen 4.0 H Ur Leukocyte Esterase NEGATIVE Urine WBC (Auto) 1 Urine RBC (Auto) 30 Urine Bacteria (Auto) TRACE Squamous Epi Cells Auto 5 Urine Mucus (Auto) RARE Urine Ascorbic Acid NEGATIVE - Vital Signs Vital signs: Temp Pulse Resp BP Pulse Ox 97.5 F 71 15 140/71 H 99 11/10/18 16:16 11/10/18 16:16 11/10/18 16:16 11/10/18 16:16 11/10/18 16:16 - Laboratory Result Diagrams: 11/10/18 17:21 11/10/18 17:21 Laboratory results interpreted by me: 11/10/18 11/10/18 11/10/18 17:05 17:21 17:21 WBC 10.7 H Chloride 108 H BUN 25 H Est GFR (Non-Af Amer) 57 L Urine Blood MODERATE H Urine Nitrite POSITIVE H Urine Urobilinogen 4.0 H Discharge - Discharge Referrals: CARYN HOUSE MD [Primary Care Provider] - Follow up as needed
--- NOTE | 2018-11-10 17:28 | RADIOLOGY REPORT (SQ) ---
EXAM DESCRIPTION: CT LTD RENAL STONE PROTOCOL ON COMPLETED DATE/TIME: 11/10/2018 5:17 pm REASON FOR STUDY: left flank pain, hx kidney stones COMPARISON: 12/14/2016 TECHNIQUE: CT scan of the abdomen and pelvis performed without intravenous or oral contrast. Images reviewed with lung, soft tissue, and bone windows. Reconstructed coronal and sagittal MPR images revi ewed. All images stored on PACS. All CT scanners at this facility use dose modulation, iterative reconstruction, and/or weight based d osing when appropriate to reduce radiation dose to as low as reasonably achievable (ALARA). [facility]: Dose Right [facility]: CareDose [facility]: Dose Right [facility]: Teradose 4D [facility]: Smart [employer] RADIATION DOSE: CT Rad equipment meets quality standard of care and radiation dose reduction techniq ues were employed. CTDIvol: 3.5 mGy. DLP: 183 mGy-cm.mGy. LIMITATIONS: None. FINDINGS: LOWER CHEST: No significant findings. No nodules or infiltrates. NON-CONTRASTED LIVER, SPLEEN, ADRENALS: Evaluation limited by lack of IV contrast. No identified sign ificant masses. PANCREAS: No masses. No peripancreatic inflammatory changes. GALLBLADDER: Surgically absent. RIGHT KIDNEY AND URETER: No suspicious masses. Assessment limited by lack of IV contrast. No signif icant calcifications. No hydronephrosis or hydroureter. LEFT KIDNEY AND URETER: No suspicious masses. Assessment limited by lack of IV contrast. There are numerous nonobstructing left renal calculi. These on measure 1 to 2 mm in greatest diameter. There is a 1 to 2 mm left UVJ stone. There is mild left-sided hydronephrosis. AORTA AND RETROPERITONEUM: No aneurysm. No retroperitoneal masses or adenopathy. BOWEL AND PERITONEAL CAVITY: No obvious masses or inflammatory changes. No free fluid. APPENDIX: Not visualized. PELVIS, BLADDER, AND ABDOMINAL WALL:No abnormal masses. No free fluid. Bladder normal. BONES: No significant findings. OTHER: No other significant finding. IMPRESSION: Mild left-sided hydronephrosis secondary to a 1 to 2 mm left UVJ stone. There are nonob structing left renal calculi as well. COMMENT: Quality ID # [id number]: Final reports with documentation of one or more dose reduction techniques (e.g., Automated exposure control, adjustment of the mA and/or kV according to patient size, use of iterative reconstruction technique) TECHNICAL DOCUMENTATION: JOB ID: [id number] [facility]- All Rights Reserved Reading location - IP/workstation name: [email or web address]
[2018-11-10 17:47] LABS: ABSOLUTE BASOPHILS # (AUTO) 0.1 10^3/uL (0.0-0.2); ABSOLUTE EOSINOPHILS # (AUTO) 0.2 10^3/uL (0.0-0.6); ABSOLUTE LYMPHOCYTES (AUTO) 1.7 10^3/uL (0.5-4.7); ABSOLUTE MONOCYTES (AUTO) 0.8 10^3/uL (0.1-1.4); ABSOLUTE NEUT (AUTO) 7.9 10^3/uL (1.7-8.2); BASOPHILS % (AUTO) 0.7 % (0-2); EOSINOPHILS % (AUTO) 1.4 % (0-6); HEMATOCRIT 39.4 % (36.0-47.0); HEMOGLOBIN 13.2 g/dL (12.0-15.5); LYMPHOCYTES % (AUTO) 16.2 % (13-45); MEAN CORPUSCULAR HGB CONC 33.5 g/dL (32.0-36.0); MEAN CORPUSCULAR VOLUME 89 fl (80-97); MONOCYTES % (AUTO) 7.7 % (3-13); PLATELET COUNT 315 10^3/uL (150-450); RED BLOOD COUNT 4.41 10^6/uL (3.72-5.28); RED CELL DISTRIBUTION WIDTH 13.3 % (11.5-14.0); TOTAL CELLS COUNTED % (AUTO) 100 %; WHITE BLOOD COUNT 10.7 10^3/uL (4.0-10.5)
[2018-11-10 18:03] LABS: APPEARANCE,URINE CLEAR; BILIRUBIN,URINE NEGATIVE (NEGATIVE); COLOR,URINE AMBER; GLUCOSE, URINE NEGATIVE (NEGATIVE); KETONES,URINE NEGATIVE (NEGATIVE); LEUKOCYTE ESTERASE,URINE NEGATIVE (NEGATIVE); NITRITE,URINE POSITIVE (NEGATIVE); PROTEIN,URINE NEGATIVE (NEGATIVE); URINE SPECIFIC GRAVITY 1.016
[2018-11-10] MEDS ORDERED: NORMAL SALINE 1000 ML 1,000 ML IV ONE (18:08)
[2018-11-10] MEDS ORDERED: HYDROMORPHONE HCL INJ/PF 2 MG/ML AMPULE IV ONE (18:09)
[2018-11-10 18:12] LABS: ALANINE AMINOTRANSFERASE 29 U/L (9-52); ALBUMIN 4.3 g/dL (3.5-5.0); ALKALINE PHOSPHATASE 95 U/L (38-126); ANION GAP 8 (5-19); ASPARTATE AMINO TRANSFERASE 25 U/L (14-36); BILIRUBIN,DIRECT 0.1 mg/dL (0.0-0.4); BILIRUBIN,TOTAL 0.4 mg/dL (0.2-1.3); BLOOD UREA NITROGEN 25 mg/dL (7-20); CARBON DIOXIDE 26 mmol/L (22-30); CHLORIDE 108 mmol/L (98-107); GLUCOSE 92 mg/dL (75-110); LIPASE 193.5 U/L (23-300); POTASSIUM 4.1 mmol/L (3.6-5.0); SODIUM 142.1 mmol/L (137-145); TOTAL PROTEIN 7.2 g/dL (6.3-8.2)
[2018-11-10] MEDS ORDERED: CEFTRIAXONE 1 GM/D5W RTU 1 GM/50 ML RTUPB IV ONE (18:39)
[2018-11-10] MEDS: CEFTRIAXONE INJ 1000 MG VIAL IV ONE ×2 (18:48→19:02)
--- NOTE | 2018-11-10 19:12 | ER Document Report ---
ED GI/ - General Chief Complaint: Possible Kidney Stone Stated Complaint: FLANK PAIN Time Seen by Provider: 11/10/18 19:11 Mode of Arrival: Ambulatory Information source: Patient Notes: 63-year-old female with a history of renal stones presents with left flank pain beginning yesterday. Patient reports she had an episode of dysuria 2 days ago, took azathioprine with some relief. She describes the flank pain as intermittent and cramping sensation that radiates to the left lower pelvis. Symptoms are identical to her previous episodes of kidney stones. She denies fevers or chills, reports nausea but no vomiting, no hematuria or vaginal bleeding. TRAVEL OUTSIDE OF THE [place] IN LAST 30 DAYS: No - HPI Patient complains to provider of: Abdominal pain, Dysuria, Flank pain. No: Vaginal bleeding, Vaginal discharge Onset: Yesterday Timing/Duration: Sudden Quality of pain: Achy, Cramping, Dull Severity at maximum: Severe Severity in ED: Mild Pain Level: 1 Location: LLQ, Left flank, Pelvis Vaginal bleeding (Compared to normal period): None Menstrual period history: Post-menopausal Sexual history: Active Associated symptoms: Dysuria, Urinary hesitancy, Urinary frequency. denies: Fever Exacerbated by: Movement Relieved by: Denies Similar symptoms previously: Yes Recently seen / treated by doctor: No - Related Data Allergies/Adverse Reactions: promethazine HCl [From Phenergan] Allergy (Verified 10/05/18 17:38) Past Medical History - General Information source: Patient - Social History Smoking Status: Never Smoker Chew tobacco use (# tins/day): No Frequency of alcohol use: None Drug Abuse: None Lives with: Family Family History: Reviewed & Not Pertinent Patient has suicidal ideation: No Patient has homicidal ideation: No - Past Medical History Cardiac Medical History: Reports: None Denies: Hx Congestive Heart Failure, Hx Hypertension Pulmonary Medical History: Reports: None EENT Medical History: Reports: None Neurological Medical History: Reports: Hx Migraine Endocrine Medical History: Reports: Hx Hypothyroidism Renal/ Medical History: Reports: Hx Kidney Stones. Denies: Hx Peritoneal Dialysis Malignancy Medical History: Reports: None GI Medical History: Reports: None Musculoskeletal Medical History: Reports None Skin Medical History: Reports None Psychiatric Medical History: Reports: None Traumatic Medical History: Reports: None Infectious Medical History: Reports: None Past Surgical History: Reports: Hx Cholecystectomy, Hx Hysterectomy - Immunizations Immunizations up to date: Yes Hx Diphtheria, Pertussis, Tetanus Vaccination: Yes History of Influenza Vaccine for 08/2017 - 01/2018 Season: Unknown Review of Systems - Review of Systems Constitutional: No symptoms reported EENT: No symptoms reported Cardiovascular: No symptoms reported Respiratory: No symptoms reported Gastrointestinal: See HPI, Abdominal pain, Nausea. denies: Vomiting, Black stools, Rectal bleeding Genitourinary: See HPI, Dysuria, Frequency, Flank pain Female Genitourinary: No symptoms reported Musculoskeletal: No symptoms reported Skin: No symptoms reported Hematologic/Lymphatic: No symptoms reported Neurological/Psychological: No symptoms reported -: Yes All other systems reviewed and negative Physical Exam - Vital signs Vitals: Temp Pulse Resp BP Pulse Ox 97.5 F 71 15 140/71 H 99 11/10/18 16:16 11/10/18 16:16 11/10/18 16:16 11/10/18 16:16 11/10/18 16:16 Interpretation: Normal - General General appearance: Appears well, Alert In distress: None - HEENT Head: Normocephalic, Atraumatic Eyes: Normal Pupils: PERRL - Respiratory Respiratory status: No respiratory distress Chest status: Nontender Breath sounds: Normal Chest palpation: Normal - Cardiovascular Rhythm: Regular Heart sounds: Normal auscultation Murmur: No - Abdominal Inspection: Normal Distension: No distension Bowel sounds: Normal Tenderness: Tender - Mild left flank and lower quadrant tenderness without rebound or guarding, no CVA tenderness. No: Guarding, Rebound Organomegaly: No organomegaly - Rectal Notes: Deferred - Genitourinary Notes: Deferred - Back Back: Normal, Nontender - Extremities General upper extremity: Normal inspection, Nontender, Normal color, Normal ROM , Normal temperature General lower extremity: Normal inspection, Nontender, Normal color, Normal ROM , Normal temperature, Normal weight bearing. No: Rudy's sign - Neurological Neuro grossly intact: Yes Cognition: Normal Orientation: AAOx4 Lore Coma Scale Eye Opening: Spontaneous Fitzwilliam Coma Scale Verbal: Oriented Fitzwilliam Coma Scale Motor: Obeys Commands Fitzwilliam Coma Scale Total: 15 Speech: Normal Motor strength normal: LUE, RUE, LLE, RLE Sensory: Normal - Psychological Associated symptoms: Normal affect, Normal mood - Skin Skin Temperature: Warm Skin Moisture: Dry Skin Color: Normal Course - Re-evaluation Re-evalutation: 11/10/18 20:22 Clinically consistent with ureterolithiasis. CT scan confirms a 1-2 mm stone at the left ureterovesicular junction. Patient also has evidence of urinary infection. She will be given intramuscular Toradol for pain control as well as oral Levaquin and will be discharged home with urology follow-up, strict return precautions. The patient voices understanding and agreement with the plan. - Vital Signs Vital signs: Temp Pulse Resp BP Pulse Ox 97.5 F 71 15 140/71 H 99 11/10/18 16:16 11/10/18 16:16 11/10/18 16:16 11/10/18 16:16 11/10/18 16:16 - Laboratory Result Diagrams: 11/10/18 17:21 11/10/18 17:21 Laboratory results interpreted by me: 11/10/18 11/10/18 11/10/18 17:05 17:21 17:21 WBC 10.7 H Chloride 108 H BUN 25 H Est GFR (Non-Af Amer) 57 L Urine Blood MODERATE H Urine Nitrite POSITIVE H Urine Urobilinogen 4.0 H - Diagnostic Test Radiology reviewed: Reports reviewed Discharge - Discharge Clinical Impression: Ureterolithiasis Urinary tract infection Qualifiers: Urinary tract infection type: acute cystitis Hematuria presence: without hematuria Qualified Code(s): N30.00 - Acute cystitis without hematuria Condition: Good Disposition: HOME, SELF-CARE Instructions: Urinary Tract Infection ([facility]), Kidney Stone ([facility]) Additional Instructions: Please follow-up with your regular physician or your urologist to confirm resolution of urinary infection as well as passage of your kidney stone. Take your prescribed medications as instructed. Return to the emergency department if you experience inability to urinate, high fevers, or have any other concerning symptom. Prescriptions: Ketorolac Tromethamine [Toradol 10 mg Tablet] 10 mg PO Q8HP PRN 5 Days #15 tablet PRN Reason: Levofloxacin [Levaquin 500 mg Tablet] 500 mg PO DAILY #10 tablet Referrals: CARYN HOUSE MD [Primary Care Provider] - Follow up as needed Print Language: Guatemalan
[2018-11-10] MEDS ORDERED: KETOROLAC TROMETHAMINE 60 MG/2 ML SDV IM ONE (20:10)
[2018-11-10] MEDS ORDERED: LEVOFLOXACIN 500 MG TABLET PO ONE (20:24)
[2018-11-10 20:55] VITALS: BP 133/68
== END 2018-11-10 20:39 | disposition home or self-care (01) ==
LOC: ER 16:04
DX: N13.2 Hydronephrosis with renal and ureteral calculous obstruction (principal); N30.00 Acute cystitis without hematuria; R11.0 Nausea; R30.0 Dysuria; R39.11 Hesitancy of micturition; R10.9 Unspecified abdominal pain; Z88.8 Allergy status to other drugs, medicaments and biological substances; Z90.49 Acquired absence of other specified parts of digestive tract; Z90.710 Acquired absence of both cervix and uterus
CPT/HCPCS: 36415; 87086; 83690; 85025; 80053; 81001; 76380; J1885; S0119; J1170; J7030; J0696

== ENCOUNTER 2020-05-02 16:17 | Emergency (ER) | payer OTHER, MEDICARE ==
[2020-05-02 16:22] VITALS: BP 146/71
--- NOTE | 2020-05-02 16:38 | ER Document Report ---
ED Medical Screen (RME) - General Chief Complaint: Swelling of Lower Extremity Stated Complaint: LEG PAIN,SWELLING Time Seen by Provider: 05/02/20 16:31 Primary Care Provider: CARYN HOUSE MD [Primary Care Provider] - Follow up as needed Mode of Arrival: Ambulatory Information source: Patient Notes: HPI; 65-year-old female presents emergency room complaining of bilateral lower extremity edema from her knees to her feet. States it has been persistent since February has gotten progressively worse since last . States she saw her primary care physician back in February who prescribed her Lasix states it is not helping. Painful to walk. States is unable to get her pants or shoes on any longer secondary to the swelling. Denies any shortness of breath, no difficulty breathing. No chest pain. No recent travel. No DVT history. Denies any use of salt. PE: Alert and oriented x3. Mild distress noted. Lungs with bibasilar rales, no wheezes, no rhonchi. Heart: Regular rate and rhythm without murmurs, rubs, gallops. 2+ pitting edema bilaterally I have greeted and performed a rapid initial assessment of this patient. A comprehensive ED assessment and evaluation of the patient, analysis of test results and completion of the medical decision making process will be conducted by additional ED providers. I have specifically instructed the patient or family members with the patient to immediately return to any nursing staff should anything change in the patient's condition or with their chief complaint. TRAVEL OUTSIDE OF THE [place] IN LAST 30 DAYS: No - Related Data Allergies/Adverse Reactions: promethazine HCl [From Phenergan] Allergy (Verified 05/02/20 16:31) Past Medical History - Social History Frequency of alcohol use: Occasional Drug Abuse: None - Past Medical History Cardiac Medical History: Denies: Hx Congestive Heart Failure, Hx Hypertension Neurological Medical History: Reports: Hx Migraine Endocrine Medical History: Reports: Hx Hypothyroidism Renal/ Medical History: Reports: Hx Kidney Stones. Denies: Hx Peritoneal Dialysis Past Surgical History: Reports: Hx Cholecystectomy, Hx Hysterectomy - Immunizations Immunizations up to date: Yes Hx Diphtheria, Pertussis, Tetanus Vaccination: Yes Physical Exam - Vital signs Vitals: Temp Pulse Resp BP Pulse Ox 98.8 F 71 16 146/71 H 97 05/02/20 16:21 05/02/20 16:21 05/02/20 16:21 05/02/20 16:21 05/02/20 16:21 Course - Vital Signs Vital signs: Temp Pulse Resp BP Pulse Ox 98.8 F 71 16 146/71 H 97 05/02/20 16:31 05/02/20 16:21 05/02/20 16:21 05/02/20 16:21 05/02/20 16:21 Doctor's Discharge - Discharge Referrals: CARYN HOUSE MD [Primary Care Provider] - Follow up as needed
--- NOTE | 2020-05-02 17:16 | RADIOLOGY REPORT (SQ) ---
EXAM DESCRIPTION: CHEST SINGLE VIEW IMAGES COMPLETED DATE/TIME: 05/02/2020 5:04 pm REASON FOR STUDY: dyspnea COMPARISON: None. EXAM PARAMETERS: NUMBER OF VIEWS: One view. TECHNIQUE: Single frontal radiographic view of the chest acquired. RADIATION DOSE: NA LIMITATIONS: None. FINDINGS: LUNGS AND PLEURA: No opacities, masses or pneumothorax. No pleural effusion. MEDIASTINUM AND HILAR STRUCTURES: No masses. Contour normal. HEART AND VASCULAR STRUCTURES: Heart normal in size. Normal vasculature. BONES: No acute findings. HARDWARE: None in the chest. OTHER: No other significant finding. IMPRESSION: 1. NO ACUTE RADIOGRAPHIC FINDING IN THE CHEST. TECHNICAL DOCUMENTATION: JOB ID: [id number] 2010 [email or web address]- All Rights Reserved Reading location - IP/workstation name: [email or web address]
[2020-05-02 17:46] LABS: ABSOLUTE BASOPHILS # (AUTO) 0.1 10^3/uL (0.0-0.2); ABSOLUTE EOSINOPHILS # (AUTO) 0.2 10^3/uL (0.0-0.6); ABSOLUTE LYMPHOCYTES (AUTO) 1.9 10^3/uL (0.5-4.7); ABSOLUTE MONOCYTES (AUTO) 0.5 10^3/uL (0.1-1.4); ABSOLUTE NEUT (AUTO) 3.3 10^3/uL (1.7-8.2); BASOPHILS % (AUTO) 1.3 % (0-2); EOSINOPHILS % (AUTO) 2.8 % (0-6); HEMATOCRIT 35.6 % (36.0-47.0); HEMOGLOBIN 11.6 g/dL (12.0-15.5); LYMPHOCYTES % (AUTO) 31.9 % (13-45); MEAN CORPUSCULAR HEMOGLOBIN 27.1 pg (27.0-33.4); MEAN CORPUSCULAR HGB CONC 32.6 g/dL (32.0-36.0); MEAN CORPUSCULAR VOLUME 83 fl (80-97); MONOCYTES % (AUTO) 8.8 % (3-13); PLATELET COUNT 290 10^3/uL (150-450); RED BLOOD COUNT 4.28 10^6/uL (3.72-5.28); RED CELL DISTRIBUTION WIDTH 14.8 % (11.5-14.0); SEGMENTED NEUTROPHILS % (AUTO) 55.2 % (42-78); TOTAL CELLS COUNTED % (AUTO) 100 %; WHITE BLOOD COUNT 6.1 10^3/uL (4.0-10.5)
[2020-05-02 18:03] LABS: APPEARANCE,URINE CLEAR; BILIRUBIN,URINE NEGATIVE (NEGATIVE); COLOR,URINE COLORLESS; GLUCOSE, URINE NEGATIVE (NEGATIVE); KETONES,URINE NEGATIVE (NEGATIVE); LEUKOCYTE ESTERASE,URINE NEGATIVE (NEGATIVE); NITRITE,URINE NEGATIVE (NEGATIVE); PROTEIN,URINE NEGATIVE (NEGATIVE); URINE SPECIFIC GRAVITY 1.003; UROBILINOGEN,URINE NEGATIVE mg/dL (<2.0)
--- NOTE | 2020-05-02 18:07 | ER Document Report ---
ED General - General Chief Complaint: Swelling of Lower Extremity Stated Complaint: LEG PAIN,SWELLING Time Seen by Provider: 05/02/20 16:31 Primary Care Provider: CARYN HOUSE MD [Primary Care Provider] - Follow up as needed Mode of Arrival: Ambulatory Notes: triage note 05/02/20 16:33 - ED Nursing Note by JAH GONZALEZ Accfatimah Num: [id number] : 1955 Patient Age: 65 Pt here with c/o wandy lower extremity edema that started in february. pt states has gotten worse over past week and swelling "goes up to knees". Pt saw her pcp in february for same sx and was placed on lasix at that time. Pt also reporting "blurred vision past 3 weeks." Pt is alert and oriented, respirations even and unlabored, skin warm, dry and pink, NAD observed. PA notes HPI; 65-year-old female presents emergency room complaining of bilateral lower extremity edema from her knees to her feet. States it has been persistent since February has gotten progressively worse since last . States she saw her primary care physician back in February who prescribed her Lasix states it is not helping. Painful to walk. States is unable to get her pants or shoes on any longer secondary to the swelling. Denies any shortness of breath, no difficulty breathing. No chest pain. No recent travel. No DVT history. Denies any use of salt. PE: Alert and oriented x3. Mild distress noted. Lungs with bibasilar rales, no wheezes, no rhonchi. Heart: Regular rate and rhythm without murmurs, rubs, gallops. 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 She also is complained of some blurry vision for 3 weeks her personal doctor placed her on Lasix which has not not really addressed her edema of her legs much. She denies any shortness of breath long-distance travel pulmonary embolisms DVTs or coagulopathies. Patient is on Topamax Wellbutrin Abilify Fioricet Synthroid and Premarin.. She had a MICHAEL in 1995. Patient is a no ndrinker non-smoker and drinks 5-10 bottles of water daily. She denies any abdominal pain or swelling or liver problems. She denies any hemoptysis black tarry stools she is having bilateral leg edema TRAVEL OUTSIDE OF THE [place] IN LAST 30 DAYS: No - Related Data Allergies/Adverse Reactions: promethazine HCl [From Phenergan] Allergy (Verified 05/02/20 16:31) Past Medical History - General Information source: Patient - Social History Smoking Status: Never Smoker Frequency of alcohol use: Occasional Drug Abuse: None Family History: Reviewed & Not Pertinent Patient has homicidal ideation: No - Past Medical History Cardiac Medical History: Denies: Hx Congestive Heart Failure, Hx Hypertension Neurological Medical History: Reports: Hx Migraine Endocrine Medical History: Reports: Hx Hypothyroidism Renal/ Medical History: Reports: Hx Kidney Stones. Denies: Hx Peritoneal Dialysis Past Surgical History: Reports: Hx Cholecystectomy, Hx Hysterectomy - Immunizations Immunizations up to date: Yes Hx Diphtheria, Pertussis, Tetanus Vaccination: Yes Physical Exam - Vital signs Vitals: Temp Pulse Resp BP Pulse Ox 98.8 F 71 16 146/71 H 97 05/02/20 16:21 05/02/20 16:21 05/02/20 16:21 05/02/20 16:21 05/02/20 16:21 Course - Vital Signs Vital signs: Temp Pulse Resp BP Pulse Ox 98.8 F 71 16 146/71 H 97 05/02/20 16:31 05/02/20 16:21 05/02/20 16:21 05/02/20 16:21 05/02/20 16:21 - Laboratory Result Diagrams: 05/02/20 17:36 05/02/20 17:36 Laboratory results interpreted by me: 05/02/20 05/02/20 05/02/20 17:36 17:36 17:36 Hgb 11.6 L Hct 35.6 L RDW 14.8 H Sodium 135.9 L Chloride 108 H Anion Gap 4 L Est GFR (MDRD) Non-Af 59 L NT-Pro-B Natriuret Pep 126 H Total Protein 5.8 L Albumin 3.4 L Critical Care Note - Critical Care Note Total time excluding time spent on procedures (mins): 90 Comments: I discussed findings with patient and she appeared to understand my diagnosis and lab and x-ray interpretation Discharge - Discharge Clinical Impression: low total protein, low albumin, Leg edema Condition: Good Disposition: HOME, SELF-CARE Additional Instructions: Follow-up with personal doctor this week return to ER as needed take medicines as directed encourage fluids. You may want to also eat some Jell-O on a daily basis to help with increased total protein and albumin levels. You may also wish to use ALISHA hose or Kiel wraps for placing your feet on the floor after sleeping at night. Remove these prior to sleeping at night. Prescriptions: Torsemide [Demadex 20 mg Tablet] 10 mg PO DAILY #10 tablet Referrals: CARYN HOUSE MD [Primary Care Provider] - Follow up as needed
[2020-05-02 18:09] LABS: ALBUMIN 3.4 g/dL (3.5-5.0); ALKALINE PHOSPHATASE 77 U/L (38-126); ASPARTATE AMINO TRANSFERASE 23 U/L (14-36); BILIRUBIN,TOTAL 0.2 mg/dL (0.2-1.3); BLOOD UREA NITROGEN 15 mg/dL (7-20); CALCIUM 8.9 mg/dL (8.4-10.2); CREATINE KINASE 89 U/L (30-135); GLUCOSE 91 mg/dL (75-110); POTASSIUM 4.2 mmol/L (3.6-5.0); TOTAL PROTEIN 5.8 g/dL (6.3-8.2)
[2020-05-02 18:14] LABS: CARBON DIOXIDE 24 mmol/L (22-30); CHLORIDE 108 mmol/L (98-107)
[2020-05-02 18:15] LABS: ANION GAP 4 (5-19)
[2020-05-02 18:21] LABS: CREATINE KINASE MB 1.49 ng/mL (<4.55); NT PRO BNP 126 pg/mL (<125)
[2020-05-02 18:23] LABS: TROPONIN I < 0.012 ng/mL
--- NOTE | 2020-05-02 18:24 | RADIOLOGY REPORT (SQ) ---
EXAM DESCRIPTION: VENOUS BILATERAL LOWER IMAGES COMPLETED DATE/TIME: 05/02/2020 6:16 pm REASON FOR STUDY: edema COMPARISON: None. TECHNIQUE: Dynamic and static hugo scale and color images acquired of both lower extremity venous sy stems. Selected spectral images acquired with additional compression and augmentation maneuvers. Imag es stored on PACS. LIMITATIONS: None. FINDINGS: RIGHT LEG COMMON FEMORAL AND FEMORAL: Normal phasicity, compression and augmentation. No visualized echogenic m aterial on hugo scale. No defects on color images. POPLITEAL: Normal compression and augmentation. No visualized echogenic material on hugo scale. No de fects on color images. CALF VESSELS: Normal compression and augmentation. No visualized echogenic material on hugo scale. No defects on color image. GSV AND SSV: Normal compression. No visualized echogenic material on hugo scale. No defects on color images. ANY DEEP VENOUS INSUFFICIENCY: Not evaluated. ANY EVIDENCE OF POPLITEAL CYST: No. OTHER: No other significant finding. LEFT LEG COMMON FEMORAL AND FEMORAL: Normal phasicity, compression and augmentation. No visualized echogenic m aterial on hugo scale. No defects on color images. POPLITEAL: Normal compression and augmentation. No visualized echogenic material on hugo scale. No de fects on color images. CALF VESSELS: Normal compression and augmentation. No visualized echogenic material on hugo scale. No defects on color images. GSV AND SSV: Normal compression. No visualized echogenic material on hugo scale. No defects on color images. ANY DEEP VENOUS INSUFFICIENCY: Not evaluated. ANY EVIDENCE POPLITEAL CYST: No. OTHER: No other significant finding. IMPRESSION: 1. NO EVIDENCE DVT OR SVT IN EITHER LEG. COMMENT: 1. The preliminary results were discussed with the charge nurse on 05/02/2020 at 18:05 hours . TECHNICAL DOCUMENTATION: JOB ID: [id number] [email or web address]- All Rights Reserved Reading location - IP/workstation name: [email or web address]
--- NOTE | 2020-05-02 20:16 | RADIOLOGY REPORT (SQ) ---
CLINICAL INDICATION: edema. Lower extremity swelling.. TECHNIQUE: Contrast enhanced spiral axial CT imaging was obtained of the abdomen and pelvis with multiplanar reconstructions. This exam was performed according to our departmental dose-optimization program, which includes automated exposure control, adjustment of the mA and/or kV according to patient size and/or use of iterative reconstruction techniques. Additional delayed phase imaging COMPARISON: November 10, 2018. CORRELATION: None. FINDINGS: Abdomen: The lung bases are grossly clear. The heart is of normal size. No evidence of pleural or pericardial fluid. The liver demonstrates pneumobilia.. The gallbladder is surgically absent. The pancreas is unremarkable. The spleen is unremarkable. The adrenals are unremarkable. The kidneys demonstrate punctate nonobstructing calculus left kidney. No obstructive uropathy hydronephrosis or hydroureter. There is no evidence of free air. No free fluid. No bulky adenopathy. Abdominal aorta is nonaneurysmal. Pelvis: The bowel is nonobstructed. The bowel is unopacified with oral contrast. Pelvic contents are unremarkable. The appendix is not seen.. Visualized bones are unremarkable. IMPRESSION: No acute intra-abdominal process is identified. No adverse change when compared to prior.. The cause of the patient's lower extremity swelling is not identified on this examination.
[2020-05-02] MEDS ORDERED: METOLAZONE 5 MG TABLET PO ONE (21:07)
--- NOTE | 2020-05-02 23:22 | EKG REPORT ---
SEVERITY:- NORMAL ECG - SINUS RHYTHM : Confirmed by: Poppy Cho 02-May-2020 23:21:59
== END 2020-05-02 21:34 | disposition home or self-care (01) ==
LOC: ER 16:17
DX: R60.0 Localized edema (principal); R79.89 Other specified abnormal findings of blood chemistry; R77.0 Abnormality of albumin; H53.8 Other visual disturbances; I10 Essential (primary) hypertension; E03.9 Hypothyroidism, unspecified; G43.909 Migraine, unspecified, not intractable, without status migrainosus; Z79.891 Long term (current) use of opiate analgesic; Z79.899 Other long term (current) drug therapy; Z88.8 Allergy status to other drugs, medicaments and biological substances
CPT/HCPCS: 93005; 99285; 36415; 82553; 82550; 84443; 85025; 80053; 81001; 84484; 83880; 93970; 71045; 74177; 93010; J3490